=== PATIENT | male | born 1960 | race Caucasian/White ===

== ENCOUNTER → 2022-07-18 09:36 | Outpatient (BNVA) | payer OTHER, SELFPAY | PROVIDERS: Visit Provider Podiatrist Foot & Ankle Surgery | DX: B35.1 Tinea unguium (principal) | CPT/HCPCS: 36415; 80053 ==

== ENCOUNTER 2023-07-02 12:09 | Outpatient (CLI) | payer OTHER, SELFPAY | END 2023-07-02 12:10 | disposition home or self-care (01) | PROVIDERS: Visit Provider Chiropractor | DX: C34.90 Malignant neoplasm of unspecified part of unspecified bronchus or lung (principal) | CPT/HCPCS: 94010 ==